=== PATIENT | female | born 1955 | race Caucasian/White ===

== ENCOUNTER 2016-09-20 09:51 | Emergency (ER) | payer BC ==
[2016-09-20] MEDS ORDERED: NS 0.9% 1000 ML* 1,000 ML IV ONE (11:08)
[2016-09-20] MEDS ORDERED: Morphine INJ* 4 MG/ML 1 ML SYRINGE IV ONE (11:08)
[2016-09-20] MEDS ORDERED: Ketorolac INJ* 30 MG/ML 1 ML VIAL IV ONE ×2 (11:08→12:49)
[2016-09-20] MEDS ORDERED: LORazepam INJ* 2 MG/ML 1 ML VIAL IV PUSH ONE (11:09)
[2016-09-20] MEDS ORDERED: LORazepam TAB(*) 1 MG PO ONE (11:35)
[2016-09-20] MEDS ORDERED: oxyCODONE/Acetamin 5/325 MG* TAB PO ONE (11:35)
--- NOTE | 2016-09-20 11:40 | RAD ---
INDICATION: Chest pain. COMPARISON: There are no prior studies available for comparison. TECHNIQUE: A portable view of the chest was obtained. FINDINGS: Cardiac and mediastinal contours appear to be within normal limits. The lungs are clear. No pleural effusion is seen. IMPRESSION: NO EVIDENCE FOR ACUTE DISEASE.
[2016-09-20 12:47] LABS: Hematocrit 43 % (35-47); Hemoglobin 14.5 g/dl (12.0-16.0); Mean Corpuscular HGB Conc 34 g/dl (31-36); Mean Corpuscular Hemoglobin 30 pg (27-31); Mean Corpuscular Volume 89 fL (80-97); Mean Platelet Volume 8 um3 (7.4-10.4); Red Blood Count 4.84 10^6/ul (4.0-5.4); Red Cell Distribution Width 14 % (10.5-15); White Blood Count 9.9 10^3/ul (3.5-10.8)
[2016-09-20 12:52] LABS: Urine Bilirubin Negative (Negative); Urine Glucose Negative (Negative); Urine Nitrite Negative (Negative)
[2016-09-20 13:05] LABS: ALT 50 U/L (7-52); AST 35 U/L (13-39); Albumin 4.7 g/dL (3.2-5.2); Alkaline Phosphatase 50 U/L (34-104); Anion Gap 8 mmol/L (2-11); Blood Urea Nitrogen 12 mg/dL (6-24); C Reactive Protein < 1.00 mg/L (< 5.00); CO2 Carbon Dioxide 27 mmol/L (22-32); Chloride 105 mmol/L (101-111); EGFR African American 94.4 (>60); EGFR Non-African American 73.4 (>60); Globulin 2.6 g/dL (2-4); Glucose 84 mg/dL (70-100); Lipase 29 U/L (11.0-82.0); Sodium 140 mmol/L (133-145); Total Protein 7.3 g/dL (6.4-8.9)
--- NOTE | 2016-09-20 13:35 | RAD ---
Indication: RIGHT upper quadrant pain. Comparison: October 06, 2014 Technique: RIGHT upper quadrant ultrasound. Report: Appropriate direction flow documented in the portal and hepatic veins. 14.5 cm liver is normal in echogenicity. Two small unchanged cysts are noted at the RIGHT hepatic lobe measuring up to 1.2 and 1.0 cm maximum dimension without concern. Negative for suspicious focal hepatic lesions. Negative for intrahepatic biliary dilatation. 2.5 mm common bile duct. Adequately distended gallbladder with normal 1.8 mm wall is without pathologic finding. Negative for sonographic Bhardwaj's sign. The pancreatic tail is partially obscured due to bowel gas with the visualized pancreas unremarkable. Negative for ascites. 10.5 x 4.3 x 3.9 cm RIGHT kidney demonstrates normal cortical echogenicity. No focal renal lesions, conspicuous stones, or hydronephrosis. IMPRESSION: 1. Two small unchanged cysts are noted at the RIGHT hepatic lobe measuring up to 1.2 and 1.0 cm maximum dimension without concern. Negative for suspicious focal hepatic lesions. 2. Negative for gallbladder pathology.
[2016-09-20 13:45] VITALS: BP 122/88
--- NOTE | 2016-09-20 15:00 | ED ---
Martin Yoon Benjamin, scribed for Payton Woodall MD on 09/20/16 at 1116 . HPI Chest Pain - HPI Summary HPI Summary: 60yo female c/o right anterior chest wall pain that worsens with movement since last week. Pt reports doing extensive exercise last week treading in water and doing pull ups for several days last week. Several days later, pt started to experience right anterior chest wall pain that has been progressively getting worse with time. Pain is aggravated with movement, leaning on the right and forward, and with deep breathe. Pt took naproxen for pain [employer]. Pain was 9/10 earlier this morning around 3am and is now 7/10. Pt also reports due to her pain , she is having difficulty breathing, lying down, or sleeping. Pt denies any recent long distance travel. - History of Current Complaint Chief Complaint: EDChestWallPain Time Seen by Provider: 09/20/16 10:14 Hx Obtained From: Patient, Family/Medical Technologist Hematology - Onset/Duration: Started Days Ago - 3-5 days, Still Present, Worse Since - progressively worsening Timing: Constant Initial Severity: Mild Current Severity: Moderate Pain Intensity: 7 Pain Scale Used: 0-10 Numeric Chest Pain Location: Right Anterior, Right Lateral Chest Pain Radiates: No Aggravating Factor(s): Position, Movement, Deep Breaths Alleviating Factor(s): Rest, OTC Meds Associated Signs and Symptoms: Negative: Weakness, Dizziness, Shortness of Breath, Nausea, Cough - Allergy/Home Medications Allergies/Adverse Reactions: Allergies Allergy/AdvReac Type Severity Reaction Status Date / Time Codeine Allergy Severe Hallucinati Verified 09/20/16 09:57 ons PMH/Surg Hx/FS Hx/Imm Hx Endocrine/Hematology History: Denies: Hx Diabetes Cardiovascular History: Denies: Hx Cardiac Arrest, Hx Congenital Heart Disease, Hx Myocardial Infarction Respiratory History: Denies: Hx Pulmonary Embolism Infectious Disease History: No Infectious Disease History: Denies: Traveled Outside the [place] in Last 30 Days - Family History Known Family History: Negative: Diabetes - Social History Occupation: Employed Full-time Lives: With Family Alcohol Use: Occasionally - glass a wine Substance Use Type: Reports: None Smoking Status (MU): Never Smoked Tobacco Review of Systems Negative: Fever Eyes: Negative ENT: Negative Positive: Chest Pain - right anterior chest wall pain. Negative: Palpitations Positive: Other - difficulty breathing d/t pain. Negative: Shortness Of Breath Gastrointestinal: Negative Genitourinary: Negative Musculoskeletal: Negative Skin: Negative Neurological: Negative Psychological: Normal All Other Systems Reviewed And Are Negative: Yes Physical Exam Triage Information Reviewed: Yes Vital Signs On Initial Exam: Initial Vitals Temp Pulse Resp BP Pulse Ox 98.4 F 71 15 130/95 100 09/20/16 09:52 09/20/16 09:52 09/20/16 09:52 09/20/16 09:52 09/20/16 09:52 Vital Signs Reviewed: Yes Appearance: Positive: Well-Appearing, Well-Nourished, Pain Distress - mild Skin: Positive: Warm, Skin Color Reflects Adequate Perfusion, Dry Head/Face: Positive: Normal Head/Face Inspection Eyes: Positive: EOMI, NEGAR ENT: Positive: Normal ENT inspection Neck: Positive: Supple, Nontender Respiratory/Lung Sounds: Positive: Clear to Auscultation, Breath Sounds Present Cardiovascular: Positive: RRR Abdomen Description: Positive: Nontender, Soft Bowel Sounds: Positive: Present Musculoskeletal: Positive: Strength/ROM Intact, Pain @ - Mild right sided chest wall discomfort at rest with lots of pain with movement. unable to locate the exact location of the pain. Neurological: Positive: Sensory/Motor Intact, Alert, Oriented to Person Place, Time, CN Intact II-III Psychiatric: Positive: Affect/Mood Appropriate - [place] Coma Scale Coma Scale Total: 15 Diagnostics - Vital Signs Vital Signs Temp Pulse Resp BP Pulse Ox 09/20/16 10:30 70 18 130/78 100 09/20/16 10:24 71 15 98 09/20/16 10:14 150/89 09/20/16 09:52 98.4 F 71 15 130/95 100 - Laboratory Lab Results: Lab Results 09/20/16 09/20/16 09/20/16 Range/Units 12:28 12:28 12:28 WBC 9.9 (3.5-10.8) 10^3/ul RBC 4.84 (4.0-5.4) 10^6/ul Hgb 14.5 (12.0-16.0) g/dl Hct 43 (35-47) % MCV 89 (80-97) fL MCH 30 (27-31) pg MCHC 34 (31-36) g/dl RDW 14 (10.5-15) % Plt Count 210 (150-450) 10^3/ul MPV 8 (7.4-10.4) um3 Neut % (Auto) 62.7 (38-83) % Lymph % (Auto) 27.5 (25-47) % [place] % (Auto) 8.6 (1-9) % Eos % (Auto) 0.7 (0-6) % Baso % (Auto) 0.5 (0-2) % Absolute Neuts (auto) 6.2 (1.5-7.7) 10^3/ul Absolute Lymphs (auto) 2.7 (1.0-4.8) 10^3/ul Absolute Monos (auto) 0.8 (0-0.8) 10^3/ul Absolute Eos (auto) 0.1 (0-0.6) 10^3/ul Absolute Basos (auto) 0 (0-0.2) 10^3/ul Absolute Nucleated RBC 0.02 10^3/ul Nucleated RBC % 0.2 Sodium 140 (133-145) mmol/L Potassium 4.0 (3.5-5.0) mmol/L Chloride 105 (101-111) mmol/L Carbon Dioxide 27 (22-32) mmol/L Anion Gap 8 (2-11) mmol/L BUN 12 (6-24) mg/dL Creatinine 0.80 (0.51-0.95) mg/dL Est GFR ( Amer) 94.4 (>60) Est GFR (Non-Af Amer) 73.4 (>60) BUN/Creatinine Ratio 15.0 (8-20) Glucose 84 (70-100) mg/dL Calcium 10.0 (8.6-10.3) mg/dL Total Bilirubin 0.60 (0.2-1.0) mg/dL AST 35 (13-39) U/L ALT 50 (7-52) U/L Alkaline Phosphatase 50 (34-104) U/L Troponin I 0.00 (<0.04) ng/mL C-Reactive Protein < 1.00 (< 5.00) mg/L Total Protein 7.3 (6.4-8.9) g/dL Albumin 4.7 (3.2-5.2) g/dL Globulin 2.6 (2-4) g/dL Albumin/Globulin Ratio 1.8 (1-3) Lipase 29 (11.0-82.0) U/L Urine Color Straw Urine Appearance Clear Urine pH 6.0 (5-9) Ur Specific [place] 1.003 L (1.010-1.030) Urine Protein Negative (Negative) Urine Ketones Negative (Negative) Urine Blood Negative (Negative) Urine Nitrate Negative (Negative) Urine Bilirubin Negative (Negative) Urine Urobilinogen Negative (Negative) Ur Leukocyte Esterase Negative (Negative) Urine Glucose Negative (Negative) Result Diagrams: 09/20/16 12:28 09/20/16 12:28 Lab Statement: Any lab studies that have been ordered have been reviewed, and results considered in the medical decision making process. - Radiology CXR Xray Interpretation: No Acute Changes Radiology Interpretation Completed By: Radiologist - Ultrasound No standard instances Ultrasound Interpretation: No Acute Changes - US GALL BLADDER IMPRESSION: 1. Two small unchanged cysts are noted at the RIGHT hepatic lobe measuring up to 1.2 and 1.0 cm maximum dimension without concern. Negative for suspicious focal hepatic lesions. 2. Negative for gallbladder pathology. Ultrasound Interpretation Completed By: Radiologist - EKG 1138. Cardiac Rate: NL - 61bpm EKG Rhythm: Sinus Rhythm ST Segment: Normal - no ST elevation Ectopy: None EKG Comparison: Other - none to compare Re-Evaluation - Re-Evaluation First Eval Re-Evaluation Time: 12:15 Comment: Discussed lab and imaging results with the pt, as well as pt's course of treatment and disposition. After discussion, pt now wants blood test done for further evaulation. Second Eval Re-Evaluation Time: 14:57 Change: Improved - pt feels much better when re-evaluated. Chest Pain Course/Dx - Course Course Of Treatment: Reviewed pt's medications list and allergies. Blood pressure noted. multiple discussions with pt about her pain, decided not to rule out PE but did r/u MO and gallbladder pain much better with toradol. close f/u - Diagnoses Provider Diagnoses: Right-sided chest wall pain Discharge - Discharge Plan Condition: Stable Disposition: HOME Prescriptions: Ketorolac TAB * [Toradol TAB *] 10 mg PO Q6H PRN #20 tab MDD 3 PRN Reason: Pain LORazepam TAB(*) [Ativan 1 MG TAB (*)] 1 mg PO Q8H PRN #10 tab MDD 3 PRN Reason: Anxiety oxyCODONE/Acetamin 5/325 MG* [Percocet 5/325 TAB*] 1 tab PO Q8H PRN #7 tab MDD 3 PRN Reason: Pain Patient Education Materials: Chest Wall Pain (ED) Referrals: Jinny Wade NP [Primary Care Provider] - The documentation as recorded by the Martin centeno Benjamin accurately reflects the service I personally performed and the decisions made by me, Payton Woodall MD.
== END 2016-09-20 15:25 | disposition home or self-care (01) ==
LOC: ED 09:51
DX: R07.89 Other chest pain (principal); K76.89 Other specified diseases of liver; Z88.5 Allergy status to narcotic agent
CPT/HCPCS: 36415; 71010; 76705; 80053; 81003; 83690; 84484; 85025; 86140; 93005; 96374; 99283; A9270-GY; J1885; J2060; J2270